=== PATIENT | female | born 1950 | race Caucasian/White ===

== ENCOUNTER → 2016-03-18 | Outpatient (CLI) | payer OTHER ==
--- NOTE | 2016-03-18 13:57 | DX ---
Left shoulder 3 views History: Fall on ice today. Comparison: None available. Findings: There is a mildly comminuted transverse fracture of the surgical neck of the humerus with m inimal posterior angulation and minimal displacement. Alignment of the glenohumeral joint is normal. The acromioclavicular and coracoclavicular relationships are normal. Impression: Mildly comminuted minimally displaced fracture of the humeral neck.
== END ==
LOC: BMCIMAGING 12:28
PROVIDERS: ATTEND Emergency Medicine
DX: S42.202A Unspecified fracture of upper end of left humerus, initial encounter for closed fracture (principal); W00.0XXA Fall on same level due to ice and snow, initial encounter

== ENCOUNTER → 2016-04-01 | Outpatient (CLI) | payer OTHER ==
--- NOTE | 2016-04-01 11:25 | DX ---
Left Shoulder - Three Views Indication: Follow-up left humeral fracture. Comparison: Left shoulder series dated March 18, 2016. Findings: The minimally comminuted left surgical neck fracture has not significantly changed in align ment since two weeks prior. Minimal bony resorption has developed along the fracture planes. No heali ng callus has developed. No other fractures. 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 Impression: Subacute minimally comminuted left humeral neck fracture is unchanged in alignment since two weeks prior. No healing callus has developed.
== END ==
LOC: BMCIMAGING 10:27
PROVIDERS: ATTEND Physician Assistant
DX: S42.212G Unspecified displaced fracture of surgical neck of left humerus, subsequent encounter for fracture with delayed healing (principal)

== ENCOUNTER → 2016-04-29 | Outpatient (CLI) | payer OTHER | LOC: BMCIMAGING 13:25 | PROVIDERS: ATTEND Physician Assistant | DX: S42.212D Unspecified displaced fracture of surgical neck of left humerus, subsequent encounter for fracture with routine healing (principal) ==

== ENCOUNTER → 2016-05-27 | Outpatient (CLI) | payer OTHER | LOC: BMCIMAGING 12:59 | DX: Z12.31 Encounter for screening mammogram for malignant neoplasm of breast (principal); Z80.3 Family history of malignant neoplasm of breast; S42.212D Unspecified displaced fracture of surgical neck of left humerus, subsequent encounter for fracture with routine healing | CPT/HCPCS: G0202 ==

== ENCOUNTER → 2017-06-16 | Outpatient (CLI) | payer OTHER, MEDICARE | LOC: BMCIMAGING 13:11 | PROVIDERS: ATTEND Internal Medicine | DX: Z12.31 Encounter for screening mammogram for malignant neoplasm of breast (principal) ==

== ENCOUNTER → 2018-06-18 | Outpatient (CLI) | payer OTHER, MEDICARE | LOC: BMCIMAGING 12:33 | PROVIDERS: ATTEND Internal Medicine | DX: Z12.31 Encounter for screening mammogram for malignant neoplasm of breast (principal) ==